=== PATIENT | male | born 1960 | race Caucasian/White ===

== ENCOUNTER 2018-05-03 14:35 | Emergency (ER) | payer BC ==
[2018-05-03] MEDS: KETOROLAC 60 MG/2 ML VIAL (J1885) IM (17:13)
== END 2018-05-03 17:39 | disposition home or self-care (01) ==
LOC: M ED 14:35
DX: M54.41 Lumbago with sciatica, right side (principal); M54.17 Radiculopathy, lumbosacral region
CPT/HCPCS: J1885

== ENCOUNTER → 2019-04-29 | Outpatient (REF) | payer BC ==
[~2019-04-29] MED LIST: HYDR-3715 PO; IBUP80TA PO; ROBA500T PO
[2019-04-29 13:15] LABS: BASO % 0.7 % (0.0-1.0); EOS # 0.1 10^3/uL (0.0-0.5); EOS % 1.3 % (0.0-3.0); HEMATOCRIT 44.6 % (42.0-52.0); HEMOGLOBIN 14.9 g/dl (13.5-17.5); LYMPH # 1.5 10^3/uL (1.5-5.0); LYMPH % 34.5 % (24.0-44.0); MEAN CORPUSCULAR HGB CONC 33.4 g/dl (32.0-36.5); MEAN CORPUSCULAR VOLUME 92.9 fl (80.0-96.0); MONO # 0.5 10^3/uL (0.0-0.8); MONO % 10.7 % (0.0-5.0); NEUTROPHILS # 2.4 10^3/uL (1.5-8.5); NEUTROPHILS % 52.6 % (36.0-66.0); PLATELET COUNT, AUTOMATED 244 10^3/uL (150-450); WHITE BLOOD COUNT 4.5 10^3/uL (4.0-10.0)
[2019-04-29 13:44] LABS: ALBUMIN 4.2 GM/DL (3.2-5.2); ALT/SGPT 22 U/L (12-78); BILIRUBIN,TOTAL 0.7 MG/DL (0.2-1.0); BLOOD UREA NITROGEN 16 MG/DL (7-18); CALCIUM LEVEL 8.7 MG/DL (8.8-10.2); CARBON DIOXIDE LEVEL 27 MEQ/L (21-32); CHLORIDE LEVEL 106 MEQ/L (98-107); CHOLESTEROL LEVEL 206 MG/DL (< 200); CREATININE FOR GFR 1.06 MG/DL (0.70-1.30); FREE T4 1.01 NG/DL (0.76-1.46); GLOMERULAR FILTRATION RATE > 60.0 (>49); GLUCOSE, FASTING 106 MG/DL (70-100); POTASSIUM SERUM 4.4 MEQ/L (3.5-5.1); SODIUM LEVEL 139 MEQ/L (136-145); TESTOSTERONE 347 NG/DL (241-827); TOTAL PROTEIN 7.5 GM/DL (6.4-8.2)
== END ==
LOC: M LABDRWAD 12:44
PROVIDERS: ATTEND Physician Assistant
DX: F52.21 Male erectile disorder (principal)

== ENCOUNTER 2025-04-15 09:49 | Emergency (ER) | payer BC, MEDICARE ==
[~2025-04-15] VITALS: Ht 177.8 cm; Wt 88.6 kg
[2025-04-15] MEDS: KETOROLAC 30 MG/ML 1 ML VIAL IV ONE (10:55)
[2025-04-15] MEDS: ONDANSETRON 4MG 2ML VIAL IV ONE (10:55)
[2025-04-15] MEDS: MORPHINE 4 MG/ML 1 ML VIAL IV PRN ×2 (10:55→21:33)
[2025-04-15 11:24] LABS: BASO # 0.0 10^3/uL (0.0-0.2); BASO % 0.3 % (0.0-1.0); EOS # 0.1 10^3/uL (0.0-0.5); EOS % 0.8 % (0.0-3.0); LYMPH # 1.1 10^3/uL (1.5-5.0); LYMPH % 12.5 % (24.0-44.0); MONO # 0.7 10^3/uL (0.0-0.8); MONO % 8.2 % (2.0-8.0); NEUTROPHILS # 6.8 10^3/uL (1.5-8.5); NEUTROPHILS % 77.9 % (36.0-66.0); PLATELET COUNT, AUTOMATED 231 10^3/uL (150-450)
[2025-04-15 11:32] LABS: INR 0.94
[2025-04-15 11:35] LABS: ALT/SGPT 21 U/L (7.0-40); AST/SGOT 17 U/L (<34); C REACTIVE PROTEIN QUANTITATIV < 0.50 MG/DL (<1.0); CALCIUM LEVEL 8.5 MG/DL (8.3-10.6); CARBON DIOXIDE LEVEL 27 MMOL/L (20-31); CHLORIDE LEVEL 104 MMOL/L (98-107); CREATININE FOR GFR 0.87 MG/DL (0.70-1.30); ERYTHROCYTE SEDIMENTATION RATE 30 mm/hr (0-20); GLOMERULAR FILTRATION RATE > 90.0 (>49); POTASSIUM SERUM 5.1 MMOL/L (3.5-5.1); SODIUM LEVEL 136 MMOL/L (136-145)
[2025-04-15] MEDS ORDERED: HOME MED LIST COMPLETE! XX SCH (13:20)
[2025-04-15] MEDS ORDERED: MEDR4PAK PO (23:36)
[2025-04-15] MEDS ORDERED: PERC5TAB12 PO (23:36)
[2025-04-16] MEDS: OXYCODONE/APAP 5MG/325MG(HOME DOSE PACK) PO ONE (00:12)
[2025-04-16 00:15] VITALS: BP 169/97; TEMP 98.2; O2SAT 96
== END 2025-04-16 00:28 | disposition home or self-care (01) ==
LOC: EDBD 09:49 → M ED 09:49
DX: M75.122 Complete rotator cuff tear or rupture of left shoulder, not specified as traumatic (principal); M75.42 Impingement syndrome of left shoulder; M75.32 Calcific tendinitis of left shoulder; M19.012 Primary osteoarthritis, left shoulder; I45.10 Unspecified right bundle-branch block; M25.412 Effusion, left shoulder; M75.22 Bicipital tendinitis, left shoulder; Z79.899 Other long term (current) drug therapy
CPT/HCPCS: 73030; 73080; 73221; 80048; 80076; 83605; 84145; 84484; 84550; 85025; 85610; 85652; 86140; 87040; 93005; 93041; 93971; 94760; 96374; 96375; 96376; 99285; J1885; J2405; J2919